=== PATIENT | female | born 1995 | race Caucasian/White ===

== ENCOUNTER 2019-04-04 15:27 | Emergency (ER) | payer BC, MEDICAID, SELFPAY ==
[2019-04-04 15:28] VITALS: BP 145/80; PULSE 105; RESP 16; RESP 18; TEMP 36.4; BMI 38.5
--- NOTE | 2019-04-04 15:45 | ED.DCSUM_ITS ---
- ER Visit Summary Date of Service: 04/04/19 Chief Complaint: Medication refill History of Present Illness: The patient is a 23 F who presents for medication refill. Patient states she has been out of her medications for the past 2 to 3 days. Patient states her anxiety and paranoia is getting progressively worse. Patient denies any suicidal or homicidal ideations. Patient denies any other complaints. Physical Examination: Vital signs are stable. Patient is afebrile. Patient is in no acute distress. Oral mucosa is pink and moist. Neck is supple. Trachea is midline. There is no JVD. Heart was regular rate and rhythm. Lungs are clear and equal bilaterally. Abdomen is soft and nontender. Cranial nerves II through XII are intact. There are no focal motor or sensory deficits noted. Patient denies any suicidal or homicidal ideations. Patient has a normal mood and affect. Emergency Department Course and Treatment: Patient was given refills of her medications. Patient was referred to the crisis counseling center for follow-up care. Patient was instructed to return if worse in any way. Patient understood and was agreeable with the plan. All questions were answered. Disposition: Discharge home Impression: Medication refill This note was generated with [employer] dictation software. It may contain incorrect words, spelling, and punctuation that were not noted in review of the chart prior to signing ED Disposition - Plan for ED Patient: Disposition: Home or Assisted Living Diagnosis: Medication refill Instructions: Med Refill Prescriptions: Aripiprazole [Abilify] 15 mg PO DAILY #30 tab Prescription Printed Lamotrigine [Lamictal] 200 mg PO DAILY #30 tab Prescription Printed Fluoxetine HCl [Prozac] 20 mg PO DAILY #30 cap Prescription Printed Oxcarbazepine [Trileptal] 150 mg PO BID #60 tab Prescription Printed Referrals: [facility] [place] Doctor,Out of [NON-STAFF] - Counseling,Center [GROUP OF PHYSICIANS] - 5-7 Days
--- NOTE | 2019-04-04 16:06 | ED.RN ---
DISCHARGE INSTRUCTIONS GIVEN TO AND REVIEWED WITH PATIENT, PATIENT DENIES QUESTIONS OR CONCERNS AND VOICES UNDERSTANDING OF DISCAHRGE INSTRUCTIONS. PT AMBULATES OUT OF ROOM WITHOUT DIFFICULTY.
== END 2019-04-04 16:07 | disposition home or self-care (01) ==
PROVIDERS: Emergency Provider Emergency Medicine
DX: Z76.0 Encounter for issue of repeat prescription (principal); F31.9 Bipolar disorder, unspecified; F41.9 Anxiety disorder, unspecified; F22 Delusional disorders
CPT/HCPCS: 99282